=== PATIENT | male | born 1945 | race Two or more races ===

== ENCOUNTER 2019-09-03 14:45 | Inpatient (IN) | payer MEDICAID, MEDICARE ==
[~2019-09-03] VITALS: Ht 157.5 cm; Wt 78.9 kg
[2019-09-03] MEDS ORDERED: SODIUM CHLORIDE 0.9% 1000ML BAG (SEPSIS BOLUS) IV ONE (15:00)
[2019-09-03] MEDS ORDERED: ACETAMINOPHEN 650MG/20.3ML UDC PO ONE (16:15)
[2019-09-03 16:35] LABS: CHLORIDE 103 mEq/L (98-107)
[2019-09-03 16:37] LABS: HEMATOCRIT. 29.7 % (42.0-52.0); MEAN CORPUSCULAR HEMOGLOBIN 27.9 pg (28.0-32.0); MEAN CORPUSCULAR VOLUME 83.1 fL (80.0-94.0); MEAN PLATELET VOLUME 8.1 fl (7.4-10.4); PLATELET 196 x1000/uL (130-400); RED BLOOD CELL COUNT 3.57 mill/uL (4.7-6.1); RED CELL DISTRIBUTION WIDTH 15.9 % (11.6-14.6)
[2019-09-03 16:38] LABS: INR 1.1; PROTHROMBIN TIME 11.6 sec (9.6-11.0)
[2019-09-03] MEDS ORDERED: OSELTAMIVIR 75MG CAPSULE PO ONE (16:45)
[2019-09-03 17:26] LABS: PLATELET ESTIMATE NORMAL
[2019-09-03 17:35] LABS: CLARITY URINE CLEAR (CLEAR); COLOR URINE YELLOW (YELLOW); KETONES URINE 1+ (NEGATIVE); LEUKOCYTE ESTERASE URINE NEGATIVE (NEGATIVE); NITRITE URINE NEGATIVE (NEGATIVE); OCCULT BLOOD URINE 1+ (NEGATIVE); PROTEIN URINE 2+ (NEGATIVE); SPECIFIC GRAVITY URINE 1.023 (1.005-1.030)
[2019-09-03] MEDS ORDERED: ALBUTEROL (0.083%) 2.5MG/3ML NEB HHN STA (17:35)
[2019-09-03] MEDS ORDERED: IPRATROPIUM BROMIDE (0.02%) 0.5MG/2.5ML NEB HHN STA (17:35)
[2019-09-03] MEDS ORDERED: ZOLPIDEM TARTRATE 5MG TABLET PO PRN (18:15)
[2019-09-03] MEDS ORDERED: ONDANSETRON HCL 4MG/2ML INJ IV PRN (18:15)
[2019-09-03] MEDS: SODIUM CHLORIDE 0.9% 1,000 ML IV SCH (18:50)
[2019-09-03 20:10] LABS: HEPATITIS B SURFACE ANTIGEN NEGATIVE
[2019-09-03 20:30] VITALS: BP 134/77
[2019-09-03 20:39] LABS: HEPATITIS A AB IGM NEGATIVE (NEGATIVE)
[2019-09-03] MEDS: BUDESONIDE 0.5MG/2ML NEB HHN SCH (21:17)
[2019-09-03] MEDS: IPRATROPIUM BROMIDE (0.02%) 0.5MG/2.5ML NEB HHN PRN (21:18)
[2019-09-03 23:00] LABS: BG BASE EXCESS -5.1 mmol/L (-2.0-2.0); BG CARBOXYHEMOGLOBIN 0.3 % (0.5-1.5); BG DEOXYHEMOGLOBIN 7.8 % (0.0-5.0); BG FRACTION INSPIRED OXYGEN 28; BG METHEMOGLOBIN 0.1 % (0.0-1.5); BG OXYGEN SATURATION 92.2 % (92.0-98.5); BG OXYHEMOGLOBIN 91.8 % (94.0-97.0); BG PCO2 37.3 mmHg (35.0-45.0); BG PH 7.348 (7.350-7.450); BG PO2 68.8 mmHg (75.0-100.0); BG SAMPLE SITE LEFT RADIAL; BG TOTAL HEMOGLOBIN 10.6 g/dL (12.0-18.0); BG VENT MODE NASAL CANNULA
[2019-09-03] MEDS: ACETAMINOPHEN 325MG TABLET PO PRN (23:46)
[2019-09-04] VITALS (12 sets, daily range): BP systolic 98–139; BP diastolic 48–82
[2019-09-04 06:06] LABS: HEMOGLOBIN. 9.3 g/dL (14.0-18.0); MEAN CORPUSCULAR HEMOGLOBIN 28.5 pg (28.0-32.0); MEAN CORPUSCULAR VOLUME 83.3 fL (80.0-94.0); MEAN PLATELET VOLUME 8.1 fl (7.4-10.4); PLATELET 162 x1000/uL (130-400); RED BLOOD CELL COUNT 3.25 mill/uL (4.7-6.1); RED CELL DISTRIBUTION WIDTH 15.9 % (11.6-14.6)
[2019-09-04 06:13] LABS: CHLORIDE 112 mEq/L (98-107)
[2019-09-04] MEDS ORDERED: PIOG30TA70 PO (07:05)
[2019-09-04] MEDS ORDERED: METF-416 PO (07:05)
[2019-09-04] MEDS ORDERED: CETI-114 PO (07:05)
[2019-09-04] MEDS ORDERED: LEVO25TA7 PO (07:05)
[2019-09-04] MEDS ORDERED: TAMS-11 PO (07:05)
[2019-09-04] MEDS ORDERED: GLIP10TA10 PO (07:05)
[2019-09-04] MEDS ORDERED: LOSA50TA41 PO (07:05)
[2019-09-04] MEDS ORDERED: FINA5TAB11 PO (07:05)
[2019-09-04] MEDS ORDERED: ATOR-2 PO (07:05)
[2019-09-04] MEDS ORDERED: PANT40TA4 PO (07:05)
[2019-09-04] MEDS ORDERED: METF500S7 PO (07:05)
[2019-09-04] MEDS: SODIUM CHLORIDE 0.9% 1,000 ML IV SCH (07:25)
[2019-09-04] MEDS: BLOOD SUGAR DIAGNOSTIC STRIP TEST SCH ×4 (07:30→21:03)
[2019-09-04] MEDS: IPRATROPIUM BROMIDE (0.02%) 0.5MG/2.5ML NEB HHN PRN (07:47)
[2019-09-04] MEDS: BUDESONIDE 0.5MG/2ML NEB HHN SCH (07:47)
[2019-09-04] MEDS: INSULIN LISPRO 100 UNITS/ML SUBCUT SCH ×4 (08:00→21:03)
[2019-09-04 10:06] LABS: PLATELET ESTIMATE NORMAL
[2019-09-04] MEDS ORDERED: BENZONATATE 100MG CAPSULE PO PRN (11:45)
[2019-09-04] MEDS: GUAIFENESIN 600MG ER TABLET PO SCH ×2 (15:30→20:51)
[2019-09-04] MEDS: FLUTICASONE PROPIONATE 50MCG/SPRAY BOTTLE BOTHNSTRLS SCH ×2 (15:30→20:51)
[2019-09-04] MEDS: ACETAMINOPHEN 325MG TABLET PO PRN ×2 (15:31→21:02)
[2019-09-04] MEDS: OSELTAMIVIR 75MG CAPSULE PO SCH ×2 (15:31→20:51)
[2019-09-04] MEDS: PREDNISONE 20MG TABLET PO SCH (15:32)
[2019-09-04] MEDS: AZITHROMYCIN 500 MG TABLET PO SCH (15:32)
[2019-09-04] MEDS: TAMSULOSIN HCL 0.4MG SR CAPSULE PO SCH (15:33)
[2019-09-04] MEDS: FAMOTIDINE 20MG TABLET PO SCH ×2 (15:43→20:51)
[2019-09-04] MEDS: IPRATROPIUM/ALBUTEROL 0.5-3(2.5)MG/3ML NEB HHN SCH ×2 (16:30→20:56)
[2019-09-04 18:08] LABS: T4 FREE 1.15 ng/dL (0.76-1.46)
[2019-09-04] MEDS: MONTELUKAST SODIUM 10MG TABLET PO SCH (20:51)
[2019-09-05] VITALS (11 sets, daily range): BP systolic 124–153; BP diastolic 55–82
[2019-09-05] MEDS: IPRATROPIUM/ALBUTEROL 0.5-3(2.5)MG/3ML NEB HHN SCH ×6 (00:38→21:15)
[2019-09-05] MEDS: ACETAMINOPHEN 325MG TABLET PO PRN (02:05)
[2019-09-05] MEDS: SODIUM CHLORIDE 0.9% 1,000 ML IV SCH ×2 (02:05→21:30)
[2019-09-05 05:41] LABS: *BARBITURATES SCREEN URINE NEGATIVE (NEGATIVE); CANNABINOID URINE SCREEN NEGATIVE (NEGATIVE); PHENCYCLIDINE URINE SCREEN NEGATIVE (NEGATIVE)
[2019-09-05 05:42] LABS: *AMPHETAMINES SCREEN URINE NEGATIVE (NEGATIVE); *BENZODIAZEPINES SCREEN URINE NEGATIVE (NEGATIVE); *COCAINE SCREEN URINE NEGATIVE (NEGATIVE); METHADONE URINE SCREEN NEGATIVE (NEGATIVE); OPIATES URINE SCREEN NEGATIVE (NEGATIVE)
[2019-09-05 06:52] LABS: HEMATOCRIT. 26.2 % (42.0-52.0); HEMOGLOBIN. 8.9 g/dL (14.0-18.0); MEAN CORPUSCULAR VOLUME 82.8 fL (80.0-94.0); MEAN PLATELET VOLUME 8.4 fl (7.4-10.4); PLATELET 163 x1000/uL (130-400); RED BLOOD CELL COUNT 3.16 mill/uL (4.7-6.1); RED CELL DISTRIBUTION WIDTH 16.1 % (11.6-14.6)
[2019-09-05] MEDS: BLOOD SUGAR DIAGNOSTIC STRIP TEST SCH ×4 (07:11→21:01)
[2019-09-05] MEDS: INSULIN LISPRO 100 UNITS/ML SUBCUT SCH ×4 (07:11→21:28)
[2019-09-05 07:16] LABS: CHLORIDE 112 mEq/L (98-107)
[2019-09-05] MEDS: FAMOTIDINE 20MG TABLET PO SCH ×2 (08:59→21:11)
[2019-09-05] MEDS: AZITHROMYCIN 500 MG TABLET PO SCH (08:59)
[2019-09-05] MEDS: OSELTAMIVIR 75MG CAPSULE PO SCH ×2 (08:59→21:02)
[2019-09-05] MEDS: TAMSULOSIN HCL 0.4MG SR CAPSULE PO SCH (09:00)
[2019-09-05] MEDS: FLUTICASONE PROPIONATE 50MCG/SPRAY BOTTLE BOTHNSTRLS SCH ×2 (09:01→21:03)
[2019-09-05] MEDS: GUAIFENESIN 600MG ER TABLET PO SCH ×2 (09:01→21:02)
[2019-09-05] MEDS: PREDNISONE 20MG TABLET PO SCH (09:02)
[2019-09-05] MEDS ORDERED: LORAZEPAM 2MG/ML CPJ IV PRN (10:45)
[2019-09-05] MEDS: PHENOL/SODIUM PHENOLATE 1.4% SRPAY 177ML MM SCH ×2 (17:24→23:32)
[2019-09-05] MEDS: BENZONATATE 100MG CAPSULE PO SCH ×2 (17:24→21:02)
[2019-09-05 17:25] LABS: PLATELET ESTIMATE NORMAL
[2019-09-05] MEDS: MONTELUKAST SODIUM 10MG TABLET PO SCH (21:11)
[2019-09-06] VITALS (15 sets, daily range): BP systolic 93–165; BP diastolic 62–91
[2019-09-06] MEDS: IPRATROPIUM/ALBUTEROL 0.5-3(2.5)MG/3ML NEB HHN SCH ×6 (01:13→20:45)
[2019-09-06] MEDS: BENZONATATE 100MG CAPSULE PO SCH ×3 (04:32→20:56)
[2019-09-06] MEDS: PHENOL/SODIUM PHENOLATE 1.4% SRPAY 177ML MM SCH ×3 (04:33→18:11)
[2019-09-06 06:46] LABS: HEMOGLOBIN. 9.1 g/dL (14.0-18.0); MEAN CORPUSCULAR HEMOGLOBIN 27.8 pg (28.0-32.0); MEAN CORPUSCULAR VOLUME 82.7 fL (80.0-94.0); MEAN PLATELET VOLUME 8.6 fl (7.4-10.4); PLATELET 192 x1000/uL (130-400); RED BLOOD CELL COUNT 3.27 mill/uL (4.7-6.1); RED CELL DISTRIBUTION WIDTH 16.2 % (11.6-14.6)
[2019-09-06 06:47] LABS: CHLORIDE 113 mEq/L (98-107)
[2019-09-06] MEDS: BLOOD SUGAR DIAGNOSTIC STRIP TEST SCH ×4 (07:30→21:14)
[2019-09-06] MEDS: INSULIN LISPRO 100 UNITS/ML SUBCUT SCH ×4 (08:00→21:14)
[2019-09-06] MEDS: FLUTICASONE PROPIONATE 50MCG/SPRAY BOTTLE BOTHNSTRLS SCH ×2 (09:34→20:59)
[2019-09-06] MEDS: TAMSULOSIN HCL 0.4MG SR CAPSULE PO SCH (09:34)
[2019-09-06] MEDS: PREDNISONE 20MG TABLET PO SCH (09:34)
[2019-09-06] MEDS: AZITHROMYCIN 500 MG TABLET PO SCH (09:34)
[2019-09-06] MEDS: OSELTAMIVIR 75MG CAPSULE PO SCH ×2 (09:34→20:56)
[2019-09-06] MEDS: FAMOTIDINE 20MG TABLET PO SCH ×2 (09:34→20:56)
[2019-09-06] MEDS: GUAIFENESIN 600MG ER TABLET PO SCH ×2 (09:34→20:56)
[2019-09-06 11:42] LABS: PLATELET ESTIMATE NORMAL
[2019-09-06] MEDS ORDERED: POTASSIUM CHLORIDE INJ 40 MEQ in DEXT 5% WATER 250 ML IV SCH (15:00)
[2019-09-06] MEDS: MONTELUKAST SODIUM 10MG TABLET PO SCH (20:56)
[2019-09-07] VITALS: BP 150/77
[2019-09-07] MEDS: IPRATROPIUM/ALBUTEROL 0.5-3(2.5)MG/3ML NEB HHN SCH ×6 (00:56→21:19)
[2019-09-07] MEDS: PHENOL/SODIUM PHENOLATE 1.4% SRPAY 177ML MM SCH ×5 (01:06→22:36)
[2019-09-07 02:00] VITALS: BP 147/74
[2019-09-07] MEDS: BENZONATATE 100MG CAPSULE PO SCH ×3 (05:56→21:12)
[2019-09-07] MEDS: BLOOD SUGAR DIAGNOSTIC STRIP TEST SCH ×4 (06:53→20:49)
[2019-09-07] MEDS: INSULIN LISPRO 100 UNITS/ML SUBCUT SCH ×4 (06:53→21:13)
[2019-09-07 07:00] LABS: HEMATOCRIT. 26.7 % (42.0-52.0); MEAN CORPUSCULAR HEMOGLOBIN 27.7 pg (28.0-32.0); MEAN CORPUSCULAR VOLUME 82.1 fL (80.0-94.0); MEAN PLATELET VOLUME 8.4 fl (7.4-10.4); PLATELET 195 x1000/uL (130-400); RED BLOOD CELL COUNT 3.25 mill/uL (4.7-6.1); RED CELL DISTRIBUTION WIDTH 16.6 % (11.6-14.6)
[2019-09-07 07:55] LABS: CHLORIDE 112 mEq/L (98-107)
[2019-09-07] MEDS: FLUTICASONE PROPIONATE 50MCG/SPRAY BOTTLE BOTHNSTRLS SCH ×2 (09:16→20:44)
[2019-09-07] MEDS: OSELTAMIVIR 75MG CAPSULE PO SCH ×2 (09:17→20:45)
[2019-09-07] MEDS: TAMSULOSIN HCL 0.4MG SR CAPSULE PO SCH (09:17)
[2019-09-07] MEDS: FAMOTIDINE 20MG TABLET PO SCH ×2 (09:17→20:44)
[2019-09-07] MEDS: PREDNISONE 20MG TABLET PO SCH (09:17)
[2019-09-07] MEDS: AZITHROMYCIN 500 MG TABLET PO SCH (09:17)
[2019-09-07] MEDS: GUAIFENESIN 600MG ER TABLET PO SCH ×2 (09:17→20:44)
[2019-09-07 10:08] LABS: NUCLEATED RED BLOOD CELLS 1 /100 WBC
[2019-09-07 10:09] LABS: PLATELET ESTIMATE NORMAL
[2019-09-07] MEDS ORDERED: POTASSIUM CHLORIDE INJ 40 MEQ in DEXT 5% WATER 250 ML IV NR (11:00)
[2019-09-07] MEDS: SODIUM CHLORIDE 0.9% 1,000 ML IV SCH (11:30)
[2019-09-07 12:00] VITALS: BP 133/55
[2019-09-07] MEDS ORDERED: METHYLPREDNISOLONE SOD SUCC 40 MG/ML VIAL IV NR (14:00)
[2019-09-07] MEDS ORDERED: BENZONATATE 100MG CAPSULE PO SCH (14:00)
[2019-09-07] MEDS: GUAIFENESIN-DM 200MG-20MG/10ML UDC PO PRN (15:24)
[2019-09-07 16:00] VITALS: BP 128/55
[2019-09-07 20:00] VITALS: BP 120/81
[2019-09-07] MEDS: MONTELUKAST SODIUM 10MG TABLET PO SCH (20:44)
[2019-09-08] VITALS: BP 130/60
[2019-09-08] MEDS: IPRATROPIUM/ALBUTEROL 0.5-3(2.5)MG/3ML NEB HHN SCH ×5 (01:01→20:30)
[2019-09-08 04:00] VITALS: BP 113/71
[2019-09-08] MEDS: BENZONATATE 100MG CAPSULE PO SCH ×3 (05:54→22:24)
[2019-09-08] MEDS: PHENOL/SODIUM PHENOLATE 1.4% SRPAY 177ML MM SCH ×4 (05:54→22:24)
[2019-09-08] MEDS: SODIUM CHLORIDE 0.9% 1,000 ML IV SCH ×3 (06:19→19:54)
[2019-09-08] MEDS: BLOOD SUGAR DIAGNOSTIC STRIP TEST SCH ×4 (06:26→20:25)
[2019-09-08 07:14] LABS: HEMATOCRIT. 27.7 % (42.0-52.0); HEMOGLOBIN. 9.4 g/dL (14.0-18.0); MEAN CORPUSCULAR HEMOGLOBIN 27.8 pg (28.0-32.0); MEAN PLATELET VOLUME 8.2 fl (7.4-10.4); PLATELET 205 x1000/uL (130-400); RED BLOOD CELL COUNT 3.38 mill/uL (4.7-6.1); RED CELL DISTRIBUTION WIDTH 16.8 % (11.6-14.6)
[2019-09-08 07:38] LABS: CHLORIDE 109 mEq/L (98-107)
[2019-09-08] MEDS: INSULIN LISPRO 100 UNITS/ML SUBCUT SCH ×4 (07:50→20:24)
[2019-09-08 08:00] VITALS: BP 131/70
[2019-09-08] MEDS: AZITHROMYCIN 500 MG TABLET PO SCH (11:58)
[2019-09-08] MEDS: OSELTAMIVIR 75MG CAPSULE PO SCH ×2 (11:58→20:25)
[2019-09-08] MEDS: FAMOTIDINE 20MG TABLET PO SCH ×2 (11:58→20:25)
[2019-09-08] MEDS: TAMSULOSIN HCL 0.4MG SR CAPSULE PO SCH (11:58)
[2019-09-08] MEDS: GUAIFENESIN 600MG ER TABLET PO SCH ×2 (11:58→20:25)
[2019-09-08] MEDS: PREDNISONE 20MG TABLET PO SCH (11:58)
[2019-09-08] MEDS: FLUTICASONE PROPIONATE 50MCG/SPRAY BOTTLE BOTHNSTRLS SCH ×2 (11:59→20:25)
[2019-09-08 12:00] VITALS: BP 115/61
[2019-09-08] MEDS ORDERED: TERBUTALINE SULFATE 1MG/ML VIAL SUBCUT NR (12:00)
[2019-09-08 13:51] LABS: PLATELET ESTIMATE NORMAL
[2019-09-08 16:00] VITALS: BP 146/72
[2019-09-08] MEDS: GUAIFENESIN-DM 200MG-20MG/10ML UDC PO PRN (19:46)
[2019-09-08 20:00] VITALS: BP 154/66
[2019-09-08] MEDS: MONTELUKAST SODIUM 10MG TABLET PO SCH (20:25)
[2019-09-09] VITALS: BP 150/77
[2019-09-09] MEDS: IPRATROPIUM/ALBUTEROL 0.5-3(2.5)MG/3ML NEB HHN SCH ×6 (00:23→20:24)
[2019-09-09 04:00] VITALS: BP 159/88
[2019-09-09] MEDS: PHENOL/SODIUM PHENOLATE 1.4% SRPAY 177ML MM SCH ×4 (05:11→23:07)
[2019-09-09] MEDS: BENZONATATE 100MG CAPSULE PO SCH ×3 (05:11→21:00)
[2019-09-09] MEDS ORDERED: CLONIDINE 0.1MG TABLET PO PRN (06:15)
[2019-09-09 07:11] LABS: HEMOGLOBIN. 9.4 g/dL (14.0-18.0); MEAN CORPUSCULAR HEMOGLOBIN 27.6 pg (28.0-32.0); MEAN CORPUSCULAR VOLUME 82.6 fL (80.0-94.0); MEAN PLATELET VOLUME 8.2 fl (7.4-10.4); PLATELET 217 x1000/uL (130-400); RED BLOOD CELL COUNT 3.39 mill/uL (4.7-6.1)
[2019-09-09] MEDS: BLOOD SUGAR DIAGNOSTIC STRIP TEST SCH ×4 (07:20→20:28)
[2019-09-09] MEDS: INSULIN LISPRO 100 UNITS/ML SUBCUT SCH ×4 (07:50→20:59)
[2019-09-09 08:00] VITALS: BP 157/75
[2019-09-09] MEDS: AZITHROMYCIN 500 MG TABLET PO SCH (08:08)
[2019-09-09] MEDS: OSELTAMIVIR 75MG CAPSULE PO SCH ×2 (08:08→20:58)
[2019-09-09] MEDS: PREDNISONE 20MG TABLET PO SCH (08:08)
[2019-09-09] MEDS: SODIUM CHLORIDE 0.9% 1,000 ML IV SCH (08:08)
[2019-09-09] MEDS: TAMSULOSIN HCL 0.4MG SR CAPSULE PO SCH (08:08)
[2019-09-09] MEDS: FAMOTIDINE 20MG TABLET PO SCH ×2 (08:08→20:58)
[2019-09-09] MEDS: GUAIFENESIN 600MG ER TABLET PO SCH ×2 (08:08→20:58)
[2019-09-09] MEDS: GUAIFENESIN-DM 200MG-20MG/10ML UDC PO PRN ×2 (08:08→16:59)
[2019-09-09] MEDS: FLUTICASONE PROPIONATE 50MCG/SPRAY BOTTLE BOTHNSTRLS SCH ×2 (08:08→20:58)
[2019-09-09 08:15] LABS: CHLORIDE 110 mEq/L (98-107)
[2019-09-09] MEDS ORDERED: POTASSIUM CHLORIDE INJ 40 MEQ in DEXT 5% WATER 250 ML IV NR ×2 (14:30→16:00)
[2019-09-09] MEDS: ACETAMINOPHEN 325MG TABLET PO PRN (16:59)
[2019-09-09 19:59] LABS: PLATELET ESTIMATE NORMAL
[2019-09-09 20:00] VITALS: BP 145/70
[2019-09-09] MEDS: MONTELUKAST SODIUM 10MG TABLET PO SCH (20:58)
[2019-09-10] VITALS: BP 147/67
[2019-09-10] MEDS: IPRATROPIUM/ALBUTEROL 0.5-3(2.5)MG/3ML NEB HHN SCH ×5 (00:28→15:45)
[2019-09-10 04:00] VITALS: BP 159/70
[2019-09-10] MEDS: PHENOL/SODIUM PHENOLATE 1.4% SRPAY 177ML MM SCH ×2 (05:35→11:59)
[2019-09-10] MEDS: BENZONATATE 100MG CAPSULE PO SCH ×2 (05:36→13:30)
[2019-09-10] MEDS: SODIUM CHLORIDE 0.9% 1,000 ML IV SCH ×2 (05:57→10:15)
[2019-09-10] MEDS: BLOOD SUGAR DIAGNOSTIC STRIP TEST SCH ×2 (06:25→12:03)
[2019-09-10 07:03] LABS: HEMATOCRIT. 26.8 % (42.0-52.0); HEMOGLOBIN. 9.1 g/dL (14.0-18.0); MEAN CORPUSCULAR HEMOGLOBIN 27.8 pg (28.0-32.0); MEAN CORPUSCULAR VOLUME 81.8 fL (80.0-94.0); MEAN PLATELET VOLUME 8.1 fl (7.4-10.4); PLATELET 215 x1000/uL (130-400); RED BLOOD CELL COUNT 3.28 mill/uL (4.7-6.1); RED CELL DISTRIBUTION WIDTH 16.9 % (11.6-14.6)
[2019-09-10] MEDS: INSULIN LISPRO 100 UNITS/ML SUBCUT SCH ×2 (07:17→13:33)
[2019-09-10 07:53] LABS: CHLORIDE 109 mEq/L (98-107)
[2019-09-10 08:00] VITALS: BP 158/73
[2019-09-10] MEDS: FAMOTIDINE 20MG TABLET PO SCH (09:10)
[2019-09-10] MEDS: GUAIFENESIN 600MG ER TABLET PO SCH (09:10)
[2019-09-10] MEDS: OSELTAMIVIR 75MG CAPSULE PO SCH (09:10)
[2019-09-10] MEDS: PREDNISONE 20MG TABLET PO SCH (09:10)
[2019-09-10] MEDS: TAMSULOSIN HCL 0.4MG SR CAPSULE PO SCH (09:10)
[2019-09-10] MEDS: GUAIFENESIN-DM 200MG-20MG/10ML UDC PO PRN (09:10)
[2019-09-10] MEDS: AZITHROMYCIN 500 MG TABLET PO SCH (09:10)
[2019-09-10] MEDS: FLUTICASONE PROPIONATE 50MCG/SPRAY BOTTLE BOTHNSTRLS SCH (09:13)
[2019-09-10 12:00] VITALS: BP 156/68
[2019-09-10] MEDS ORDERED: BENZ100C86 PO (14:24)
[2019-09-10] MEDS ORDERED: IPRA3AMP9 HHN (14:24)
[2019-09-10] MEDS ORDERED: MONT10TA21 PO (14:24)
[2019-09-10] MEDS ORDERED: ALBU18HF2 IH (14:24)
[2019-09-10] MEDS ORDERED: GUAI600T44 PO (14:24)
[2019-09-10] MEDS ORDERED: MOME13HF2 INH (14:25)
[2019-09-10 15:28] VITALS: BP 156/68
[2019-09-10 16:00] VITALS: BP 145/58
[2019-09-10 19:52] LABS: PLATELET ESTIMATE NORMAL
== END 2019-09-10 16:15 | disposition home or self-care (01) | DRG 720 ==
LOC: ER 14:49 → 7WST 17:39 → EDBEDREQ 17:45 → EDBEDREQSVC 17:45 → ENRESERV 19:20 → 5EST 09-04 00:24 → 6WST 09-07 05:38
PROVIDERS: ADMIT Internal Medicine; ATTEND Internal Medicine
DX: A41.9 Sepsis, unspecified organism (principal); J96.01 Acute respiratory failure with hypoxia; J45.901 Unspecified asthma with (acute) exacerbation; J44.9 Chronic obstructive pulmonary disease, unspecified; I11.0 Hypertensive heart disease with heart failure; I50.40 Unspecified combined systolic (congestive) and diastolic (congestive) heart failure; I36.1 Nonrheumatic tricuspid (valve) insufficiency; K21.9 Gastro-esophageal reflux disease without esophagitis; D64.9 Anemia, unspecified; E03.9 Hypothyroidism, unspecified; E11.9 Type 2 diabetes mellitus without complications; E78.5 Hyperlipidemia, unspecified; J10.1 Influenza due to other identified influenza virus with other respiratory manifestations; N40.0 Benign prostatic hyperplasia without lower urinary tract symptoms; Z82.49 Family history of ischemic heart disease and other diseases of the circulatory system; Z85.46 Personal history of malignant neoplasm of prostate; Z79.899 Other long term (current) drug therapy; Z79.84 Long term (current) use of oral hypoglycemic drugs; Z87.891 Personal history of nicotine dependence
CPT/HCPCS: 36415; 36600; 71045; 80048; 80053; 80305; 81003; 82375; 82805; 82962; 83036; 83605; 83880; 84145; 84439; 84443; 84481; 84484; 85025; 85379; 86705; 86709; 86803; 87340; 87804; 93005; 93306; 93970; 94640; 96360; 96361; 99291; J1815; J2920; J3105; J3480; J7030; J7060; J7512; J7611; J7620; J7626

== ENCOUNTER 2020-06-08 00:15 | Emergency (ER) | payer MEDICAID ==
[~2020-06-08] VITALS: Ht 165.1 cm; Wt 81.2 kg
[~2020-06-08 00:15] MED LIST: ALBU18HF2 IH; ATOR-2 PO; BENZ100C86 PO; CETI-114 PO; FINA5TAB11 PO; GLIP10TA10 PO; GUAI600T44 PO; IPRA3AMP9 HHN; LEVO25TA7 PO; LOSA50TA41 PO; METF-416 PO; MOME13HF2 INH; MONT10TA21 PO; PANT40TA4 PO; PIOG30TA70 PO; TAMS-11 PO
[2020-06-08] MEDS ORDERED: TRAMADOL 50MG TABLET PO SCH (00:30)
[2020-06-08 02:49] VITALS: BP 147/81
== END 2020-06-08 02:50 | disposition home or self-care (01) ==
LOC: ER 00:30
DX: S52.591A Other fractures of lower end of right radius, initial encounter for closed fracture (principal); S09.8XXA Other specified injuries of head, initial encounter; S80.01XA Contusion of right knee, initial encounter; J44.9 Chronic obstructive pulmonary disease, unspecified; E11.9 Type 2 diabetes mellitus without complications; E78.00 Pure hypercholesterolemia, unspecified; I10 Essential (primary) hypertension; W01.0XXA Fall on same level from slipping, tripping and stumbling without subsequent striking against object, initial encounter; Y93.01 Activity, walking, marching and hiking; Y92.89 Other specified places as the place of occurrence of the external cause; Z85.46 Personal history of malignant neoplasm of prostate
CPT/HCPCS: 73110; 73130; 73562; 99284

== ENCOUNTER 2020-07-26 18:44 | Emergency (ER) | payer MEDICAID ==
[~2020-07-26] VITALS: Ht 160 cm; Wt 80.0 kg
[2020-07-26] MEDS ORDERED: KETOROLAC 30MG/ML VIAL IV STA (19:36)
[2020-07-26] MEDS ORDERED: PREDNISONE 20MG TABLET PO STA (19:36)
[2020-07-26] MEDS ORDERED: ONDANSETRON 4MG ODT PO STA (19:36)
[2020-07-26] MEDS: ALBUTEROL 6.7GM HFA INHALER ORI PRN (20:38)
[2020-07-26 21:42] LABS: HEMATOCRIT. 36.2 % (42.0-52.0); HEMOGLOBIN. 12.6 g/dL (14.0-18.0); MEAN CORPUSCULAR HEMOGLOBIN 28.5 pg (28.0-32.0); MEAN PLATELET VOLUME 8.4 fl (7.4-10.4); PLATELET 152 x1000/uL (130-400); RED BLOOD CELL COUNT 4.41 mill/uL (4.7-6.1); RED CELL DISTRIBUTION WIDTH 14.8 % (11.6-14.6)
[2020-07-26 22:01] LABS: CHLORIDE 104 mEq/L (98-107)
[2020-07-26 22:20] LABS: PLATELET ESTIMATE NORMAL
[2020-07-27] MEDS: ALBUTEROL 6.7GM HFA INHALER ORI PRN ×2 (01:00→01:39)
[2020-07-27 01:51] VITALS: BP 126/76
== END 2020-07-27 01:55 | disposition home or self-care (01) ==
LOC: ER 18:44
DX: J18.9 Pneumonia, unspecified organism (principal); J44.1 Chronic obstructive pulmonary disease with (acute) exacerbation; I10 Essential (primary) hypertension; E11.9 Type 2 diabetes mellitus without complications; E78.00 Pure hypercholesterolemia, unspecified; Z20.828 Contact with and (suspected) exposure to other viral communicable diseases; Z85.46 Personal history of malignant neoplasm of prostate; Z79.84 Long term (current) use of oral hypoglycemic drugs
CPT/HCPCS: 36415; 71045; 73110; 80053; 83880; 84484; 85025; 93005; 94640; 96374; 99285; J1885; J7512; Q0162

== ENCOUNTER 2021-04-23 23:04 | Inpatient (IN) | payer MEDICAID ==
[~2021-04-23] VITALS: Ht 160 cm; Wt 79.8 kg
[~2021-04-23 23:04] MED LIST changes: -CETI-114 PO; +CETI-89 PO; -PANT40TA4 PO; +PANT40TA51 PO
[2021-04-23] MEDS ORDERED: IPRATROPIUM BROMIDE (0.02%) 0.5MG/2.5ML NEB HHN STA (23:08)
[2021-04-23] MEDS ORDERED: METHYLPREDNISOLONE SOD SUCC 125 MG/2 ML VIAL IV STA (23:08)
[2021-04-23] MEDS ORDERED: ALBUTEROL (0.083%) 2.5MG/3ML NEB HHN STA (23:08)
[2021-04-23] MEDS ORDERED: AZITHROMYCIN 500 MG in DEXT 5% WATER 250 ML IV ONE (23:15)
[2021-04-23] MEDS ORDERED: CEFTRIAXONE 1 G PREMIX 50 ML IV ONE (23:15)
[2021-04-23 23:36] LABS: EOSINOPHILS % 11.9 % (0.0-5.0); HEMATOCRIT. 37.2 % (42.0-52.0); HEMOGLOBIN. 12.7 g/dL (14.0-18.0); LYMPHOCYTES % 24.8 % (20.0-50.0); MEAN CORPUSCULAR HEMOGLOBIN 28.2 pg (28.0-32.0); MEAN CORPUSCULAR VOLUME 82.4 fL (80.0-94.0); MEAN PLATELET VOLUME 8.2 fl (7.4-10.4); MONOCYTES % 8.8 % (2.0-8.0); NEUTROPHILS % 53.5 % (40.0-76.0); PLATELET 165 x1000/uL (130-400); RED BLOOD CELL COUNT 4.51 mill/uL (4.7-6.1); RED CELL DISTRIBUTION WIDTH 14.5 % (11.6-14.6)
[2021-04-23 23:46] LABS: CHLORIDE 105 mEq/L (98-107)
[2021-04-23 23:47] LABS: D-DIMER < 0.19 mg/L FEU (<0.50); PROTHROMBIN TIME 10.3 sec (9.6-11.0)
[2021-04-24 01:03] LABS: CLARITY URINE CLEAR (CLEAR); COLOR URINE YELLOW (YELLOW); KETONES URINE NEGATIVE (NEGATIVE); LEUKOCYTE ESTERASE URINE NEGATIVE (NEGATIVE); NITRITE URINE NEGATIVE (NEGATIVE); OCCULT BLOOD URINE NEGATIVE (NEGATIVE); PROTEIN URINE NEGATIVE (NEGATIVE); SPECIFIC GRAVITY URINE 1.015 (1.005-1.030); UROBILINOGEN URINE 0.2 E.U./dL (0.2-1.0)
[2021-04-24] MEDS ORDERED: ONDANSETRON HCL 4MG/2ML INJ IV PRN (02:00)
[2021-04-24] MEDS ORDERED: ACETAMINOPHEN 325MG TABLET PO PRN (02:00)
[2021-04-24] MEDS ORDERED: DEXTROSE 50% WATER 50ML SYRINGE IV PRN (02:15)
[2021-04-24] MEDS ORDERED: IPRATROPIUM/ALBUTEROL 0.5-3(2.5)MG/3ML NEB HHN SCH ×2 (04:19)
[2021-04-24] MEDS: BLOOD SUGAR DIAGNOSTIC STRIP TEST SCH ×5 (04:33→21:23)
[2021-04-24] MEDS: INSULIN LISPRO 100 UNITS/ML SUBCUT SCH ×5 (04:39→21:23)
[2021-04-24] MEDS: PREDNISONE 20MG TABLET PO SCH ×2 (04:39→09:25)
[2021-04-24 17:20] VITALS: BP 157/78
[2021-04-24] MEDS: ACETAMINOPHEN 325MG TABLET PO PRN (19:23)
[2021-04-24] MEDS: IPRATROPIUM/ALBUTEROL 0.5-3(2.5)MG/3ML NEB HHN SCH (20:01)
[2021-04-24 20:30] VITALS: BP 143/74
[2021-04-24] MEDS ORDERED: PRED5TAB MT (20:57)
[2021-04-24] MEDS ORDERED: ACET-2708 MT (20:57)
[2021-04-24] MEDS ORDERED: BENZ100C86 MT (20:57)
[2021-04-24] MEDS ORDERED: AZIT500T3 MT (20:57)
[2021-04-24] MEDS ORDERED: ROFL500T PO (20:57)
[2021-04-24] MEDS ORDERED: [UNRECOGNIZED DRUG - CODE] MT (20:57)
[2021-04-24] MEDS ORDERED: FURO40TA5 MT (20:57)
[2021-04-24] MEDS ORDERED: AZITHROMYCIN 500 MG in DEXT 5% WATER 250 ML IV SCH (21:00)
[2021-04-24] MEDS ORDERED: FINASTERIDE 5MG TABLET PO SCH (21:00)
[2021-04-24] MEDS ORDERED: MONTELUKAST SODIUM 10MG TABLET PO SCH (21:00)
[2021-04-24] MEDS: LOSARTAN POTASSIUM 50 MG TABLET PO SCH (21:22)
[2021-04-25] VITALS: BP 116/47
[2021-04-25] MEDS: IPRATROPIUM/ALBUTEROL 0.5-3(2.5)MG/3ML NEB HHN SCH ×4 (00:34→15:46)
[2021-04-25 04:30] VITALS: BP 125/48
[2021-04-25] MEDS: BLOOD SUGAR DIAGNOSTIC STRIP TEST SCH ×2 (06:24→12:20)
[2021-04-25] MEDS ORDERED: PANTOPRAZOLE 40MG DR TABLET PO SCH (07:20)
[2021-04-25] MEDS ORDERED: LEVOTHYROXINE SODIUM 25MCG TABLET PO SCH (07:20)
[2021-04-25 08:00] VITALS: BP 131/56
[2021-04-25] MEDS ORDERED: CETIRIZINE 10MG TABLET PO SCH (09:00)
[2021-04-25] MEDS ORDERED: TAMSULOSIN HCL 0.4MG SR CAPSULE PO SCH (09:00)
[2021-04-25] MEDS: INSULIN LISPRO 100 UNITS/ML SUBCUT SCH ×2 (10:09→13:39)
[2021-04-25] MEDS: PREDNISONE 20MG TABLET PO SCH (10:11)
[2021-04-25] MEDS: LOSARTAN POTASSIUM 50 MG TABLET PO SCH (10:11)
[2021-04-25] MEDS: ACETAMINOPHEN 325MG TABLET PO PRN (10:12)
[2021-04-25] MEDS ORDERED: BENZONATATE 100MG CAPSULE PO PRN (11:45)
[2021-04-25 12:00] VITALS: BP 119/57
[2021-04-25] MEDS ORDERED: INSULIN LISPRO 100 UNITS/ML SUBCUT SCH (12:20)
[2021-04-25] MEDS ORDERED: ENOXAPARIN 40MG/0.4ML SYR SUBCUT SCH (12:30)
[2021-04-25] MEDS ORDERED: AZIT500T8 MT (15:41)
[2021-04-25] MEDS ORDERED: P20 PO (15:41)
[2021-04-25 16:00] VITALS: BP 109/53
[2021-04-25 16:43] LABS: BASOPHILS % 0.4 % (0.0-2.0); CHLORIDE 103 mEq/L (98-107); EOSINOPHILS % 0.6 % (0.0-5.0); HEMATOCRIT. 36.4 % (42.0-52.0); HEMOGLOBIN. 12.4 g/dL (14.0-18.0); LYMPHOCYTES % 9.7 % (20.0-50.0); MEAN CORPUSCULAR HEMOGLOBIN 28.5 pg (28.0-32.0); MEAN CORPUSCULAR VOLUME 83.5 fL (80.0-94.0); MEAN PLATELET VOLUME 8.8 fl (7.4-10.4); MONOCYTES % 2.5 % (2.0-8.0); NEUTROPHILS % 86.8 % (40.0-76.0); PLATELET 183 x1000/uL (130-400); RED BLOOD CELL COUNT 4.36 mill/uL (4.7-6.1); RED CELL DISTRIBUTION WIDTH 14.5 % (11.6-14.6)
[2021-04-25 16:49] LABS: PHOSPHORUS 3.2 mg/dL (2.5-4.9)
[2021-04-25 17:12] VITALS: BP 119/57
[2021-04-25] MEDS ORDERED: INSULIN GLARGINE UD 100 UNITS/ML SYR SUBCUT SCH (22:00)
== END 2021-04-25 18:02 | disposition home or self-care (01) | DRG 140 ==
LOC: ER 23:04 → MICUSO 04-24 01:07 → EDBEDREQ 04-24 01:11 → EDBEDREQTM 04-24 01:11 → EDBEDREQSVC 04-24 01:11 → EDBEDREQDT 04-24 01:11 → SUPCPDRO 04-24 01:58 → 6WST 04-24 15:22
PROVIDERS: ADMIT Internal Medicine; ATTEND Internal Medicine
DX: J44.1 Chronic obstructive pulmonary disease with (acute) exacerbation (principal); J96.01 Acute respiratory failure with hypoxia; E11.65 Type 2 diabetes mellitus with hyperglycemia; D64.9 Anemia, unspecified; R81 Glycosuria; Z20.822 Contact with and (suspected) exposure to COVID-19; Z79.51 Long term (current) use of inhaled steroids; Z79.84 Long term (current) use of oral hypoglycemic drugs; Z79.899 Other long term (current) drug therapy; Z85.46 Personal history of malignant neoplasm of prostate; Z85.9 Personal history of malignant neoplasm, unspecified
CPT/HCPCS: 36415; 71045; 80053; 81003; 82962; 83036; 83605; 83735; 83880; 84100; 84145; 84484; 85025; 85379; 87426; 93005; 94640; 94644; 99291; J0456; J0696; J1650; J1815; J2930; J7040; J7060; J7512

== ENCOUNTER 2021-07-22 00:29 | Inpatient (IN) | payer MEDICAID ==
[~2021-07-22] VITALS: Ht 162.6 cm; Wt 77.1 kg
[~2021-07-22 00:29] MED LIST changes: +ACET-2708 MT; +AZIT500T8 MT; +BENZ100C86 MT; -BENZ100C86 PO; +FURO40TA5 MT; -GUAI600T44 PO; +P20 PO; -PIOG30TA70 PO; +ROFL500T PO; +[UNRECOGNIZED DRUG - CODE] MT
[2021-07-22] MEDS ORDERED: IPRATROPIUM BROMIDE (0.02%) 0.5MG/2.5ML NEB HHN STA (00:36)
[2021-07-22] MEDS ORDERED: METHYLPREDNISOLONE SOD SUCC 125 MG/2 ML VIAL IV STA (00:36)
[2021-07-22] MEDS ORDERED: ONDANSETRON HCL 4MG/2ML INJ IV STA (00:36)
[2021-07-22] MEDS ORDERED: ALBUTEROL (0.083%) 2.5MG/3ML NEB HHN STA (00:36)
[2021-07-22] MEDS ORDERED: MAGNESIUM 2 G PREMIX 50 ML IV ONE (00:45)
[2021-07-22] MEDS ORDERED: FUROSEMIDE 40MG/4ML VIAL IV ONE (00:45)
[2021-07-22] MEDS ORDERED: ASPIRIN 81MG TABLET PO ONE (00:45)
[2021-07-22] MEDS ORDERED: NITROGLYCERIN OINT 1GM/INCH UDPKT TD ONE (00:45)
[2021-07-22 01:06] LABS: BASOPHILS % 1.2 % (0.0-2.0); EOSINOPHILS % 14.3 % (0.0-5.0); HEMATOCRIT. 34.4 % (42.0-52.0); HEMOGLOBIN. 11.6 g/dL (14.0-18.0); LYMPHOCYTES % 30.1 % (20.0-50.0); MEAN CORPUSCULAR HEMOGLOBIN 27.5 pg (28.0-32.0); MEAN CORPUSCULAR VOLUME 81.3 fL (80.0-94.0); MEAN PLATELET VOLUME 7.5 fl (7.4-10.4); MONOCYTES % 7.6 % (2.0-8.0); NEUTROPHILS % 46.8 % (40.0-76.0); PLATELET 181 x1000/uL (130-400); RED BLOOD CELL COUNT 4.23 mill/uL (4.7-6.1); RED CELL DISTRIBUTION WIDTH 13.8 % (11.6-14.6)
[2021-07-22 01:12] LABS: CHLORIDE 110 mEq/L (98-107)
[2021-07-22] MEDS ORDERED: GUAIFENESIN 200MG/10ML SUGAR FREE UDC PO PRN (02:45)
[2021-07-22] MEDS ORDERED: CLONIDINE 0.1MG TABLET PO PRN (02:45)
[2021-07-22] MEDS: METHYLPREDNISOLONE SOD SUCC 125 MG/2 ML VIAL IV SCH ×4 (02:45→17:57)
[2021-07-22] MEDS ORDERED: MAGNESIUM/ALUMINUM HYDROXIDE/SIMETHICONE 30ML UDC PO PRN (02:45)
[2021-07-22] MEDS ORDERED: DOCUSATE SODIUM 100MG CAPSULE PO PRN (02:45)
[2021-07-22] MEDS ORDERED: HYDROCODONE/ACETAMINOPHEN 5/325MG TABLET PO PRN (02:45)
[2021-07-22] MEDS ORDERED: ONDANSETRON HCL 4MG/2ML INJ IV PRN (02:45)
[2021-07-22] MEDS ORDERED: IPRATROPIUM/ALBUTEROL 0.5-3(2.5)MG/3ML NEB HHN PRN (02:45)
[2021-07-22] MEDS: AMLODIPINE 10MG TABLET PO SCH ×2 (02:45→09:02)
[2021-07-22] MEDS ORDERED: ACETAMINOPHEN 325MG TABLET PO PRN (02:45)
[2021-07-22] MEDS ORDERED: NALOXONE HCL 0.4 MG/ML 1ML VIAL IV PRN (03:30)
[2021-07-22] MEDS: LEVOFLOXACIN 500MG PREMIX 100 ML IV SCH (04:04)
[2021-07-22] MEDS: TAMSULOSIN HCL 0.4MG SR CAPSULE PO SCH ×2 (04:08→09:01)
[2021-07-22] MEDS: ENOXAPARIN 40MG/0.4ML SYR SUBCUT SCH (08:13)
[2021-07-22] MEDS: FUROSEMIDE 40MG TABLET PO SCH (08:13)
[2021-07-22] MEDS: PANTOPRAZOLE 40MG DR TABLET PO SCH (09:01)
[2021-07-22] MEDS: LOSARTAN POTASSIUM 50 MG TABLET PO SCH (09:01)
[2021-07-22] MEDS: CETIRIZINE 10MG TABLET PO SCH (09:02)
[2021-07-22] MEDS: LEVOTHYROXINE SODIUM 25MCG TABLET PO SCH (09:02)
[2021-07-22] MEDS: GLIPIZIDE 10MG TABLET PO SCH (09:02)
[2021-07-22 10:30] VITALS: BP 132/66
[2021-07-22] MEDS ORDERED: DEXTROSE 50% WATER 50ML SYRINGE IV PRN (10:30)
[2021-07-22] MEDS: INSULIN LISPRO 100 UNITS/ML SUBCUT SCH ×3 (11:47→21:57)
[2021-07-22 12:00] VITALS: BP 110/50
[2021-07-22] MEDS: BLOOD SUGAR DIAGNOSTIC STRIP TEST SCH ×3 (12:00→21:00)
[2021-07-22 12:30] VITALS: BP 132/66
[2021-07-22] MEDS: IPRATROPIUM/ALBUTEROL 0.5-3(2.5)MG/3ML NEB HHN SCH ×2 (14:36→21:36)
[2021-07-22 16:00] VITALS: BP 111/54
[2021-07-22] MEDS ORDERED: INFLUENZA VACCINE 05/PF 0.5 ML SYRINGE IM ONE (17:00)
[2021-07-22 20:00] VITALS: BP 112/50
[2021-07-22] MEDS ORDERED: FINASTERIDE 5MG TABLET PO SCH (21:00)
[2021-07-22] MEDS ORDERED: MONTELUKAST SODIUM 10MG TABLET PO SCH (21:00)
[2021-07-23] VITALS: BP 95/49
[2021-07-23] MEDS: METHYLPREDNISOLONE SOD SUCC 125 MG/2 ML VIAL IV SCH ×3 (00:35→12:00)
[2021-07-23] MEDS: IPRATROPIUM/ALBUTEROL 0.5-3(2.5)MG/3ML NEB HHN SCH ×2 (01:11→09:12)
[2021-07-23 04:00] VITALS: BP 122/58
[2021-07-23] MEDS: LEVOFLOXACIN 500MG PREMIX 100 ML IV SCH (05:54)
[2021-07-23] MEDS: BLOOD SUGAR DIAGNOSTIC STRIP TEST SCH ×2 (06:38→12:16)
[2021-07-23] MEDS: PANTOPRAZOLE 40MG DR TABLET PO SCH (06:40)
[2021-07-23] MEDS: LEVOTHYROXINE SODIUM 25MCG TABLET PO SCH (06:41)
[2021-07-23] MEDS: INSULIN LISPRO 100 UNITS/ML SUBCUT SCH ×2 (06:42→13:12)
[2021-07-23 07:09] LABS: BASOPHILS % 0.1 % (0.0-2.0); HEMOGLOBIN. 11.6 g/dL (14.0-18.0); LYMPHOCYTES % 8.1 % (20.0-50.0); MEAN CORPUSCULAR HEMOGLOBIN 27.7 pg (28.0-32.0); MEAN CORPUSCULAR VOLUME 81.5 fL (80.0-94.0); MEAN PLATELET VOLUME 8.4 fl (7.4-10.4); MONOCYTES % 2.1 % (2.0-8.0); NEUTROPHILS % 89.7 % (40.0-76.0); PLATELET 185 x1000/uL (130-400); RED BLOOD CELL COUNT 4.17 mill/uL (4.7-6.1); RED CELL DISTRIBUTION WIDTH 13.5 % (11.6-14.6)
[2021-07-23 07:13] LABS: CHLORIDE 105 mEq/L (98-107)
[2021-07-23 07:25] LABS: LDL CHOLESTEROL 138 mg/dL (5-100)
[2021-07-23 07:27] LABS: HDL CHOLESTEROL 43 mg/dL (40-59)
[2021-07-23 08:00] VITALS: BP 114/51
[2021-07-23 08:42] LABS: BG BASE EXCESS -0.3 mmol/L (-2.0-2.0); BG CARBOXYHEMOGLOBIN 0.3 % (0.5-1.5); BG DEOXYHEMOGLOBIN 1.9 % (0.0-5.0); BG FRACTION INSPIRED OXYGEN 28; BG HCO3 ACT 24.2 mmol/L (22.0-26.0); BG METHEMOGLOBIN 0.3 % (0.0-1.5); BG OXYGEN SATURATION 98.1 % (92.0-98.5); BG OXYHEMOGLOBIN 97.5 % (94.0-97.0); BG PH 7.411 (7.350-7.450); BG PO2 115.3 mmHg (75.0-100.0); BG SAMPLE SITE RIGHT RADIAL; BG TOTAL HEMOGLOBIN 12.1 g/dL (12.0-18.0); BG VENT MODE NASAL CANNULA
[2021-07-23] MEDS ORDERED: INFLUENZA VACCINE 05/PF 0.5 ML SYRINGE IM ONE (09:00)
[2021-07-23] MEDS: AMLODIPINE 10MG TABLET PO SCH (09:35)
[2021-07-23] MEDS: TAMSULOSIN HCL 0.4MG SR CAPSULE PO SCH (09:35)
[2021-07-23] MEDS: GLIPIZIDE 10MG TABLET PO SCH (09:35)
[2021-07-23] MEDS: LOSARTAN POTASSIUM 50 MG TABLET PO SCH (09:36)
[2021-07-23] MEDS: FUROSEMIDE 40MG TABLET PO SCH (09:39)
[2021-07-23] MEDS: CETIRIZINE 10MG TABLET PO SCH (09:40)
[2021-07-23] MEDS: ENOXAPARIN 40MG/0.4ML SYR SUBCUT SCH (09:40)
[2021-07-23 12:00] VITALS: BP 104/53
[2021-07-23 12:17] VITALS: BP 115/66
== END 2021-07-23 14:15 | disposition home or self-care (01) | DRG 140 ==
LOC: ER 00:29 → 7EST 02:18 → EDBEDREQTM 02:33 → EDBEDREQ 02:33 → ENRESERV 09:01
PROVIDERS: ADMIT Hospitalist; ATTEND Hospitalist
DX: J44.1 Chronic obstructive pulmonary disease with (acute) exacerbation (principal); I11.0 Hypertensive heart disease with heart failure; I50.32 Chronic diastolic (congestive) heart failure; E03.9 Hypothyroidism, unspecified; Z20.822 Contact with and (suspected) exposure to COVID-19; N40.0 Benign prostatic hyperplasia without lower urinary tract symptoms; E11.9 Type 2 diabetes mellitus without complications; Z82.49 Family history of ischemic heart disease and other diseases of the circulatory system; Z79.899 Other long term (current) drug therapy; Z79.84 Long term (current) use of oral hypoglycemic drugs; Z85.9 Personal history of malignant neoplasm, unspecified
CPT/HCPCS: 36415; 36600; 71045; 80053; 80061; 82375; 82805; 82962; 83036; 83880; 84484; 85025; 87426; 90686; 93005; 93970; 99291; J1650; J1815; J1940; J1956; J2310; J2405; J2930; J3475

== ENCOUNTER 2021-08-09 15:34 | Inpatient (IN) | payer MEDICAID ==
[~2021-08-09] VITALS: Ht 172.7 cm; Wt 72.6 kg
[2021-08-09] MEDS ORDERED: ASPIRIN 81MG TABLET PO ONE (15:45)
[2021-08-09] MEDS ORDERED: FUROSEMIDE 40MG/4ML VIAL IV ONE (15:45)
[2021-08-09] MEDS ORDERED: NITROGLYCERIN OINT 1GM/INCH UDPKT TD ONE (15:45)
[2021-08-09 16:13] LABS: CHLORIDE 108 mEq/L (98-107)
[2021-08-09 16:17] LABS: PARTIAL THROMBOPLASTIN TIME 24.1 sec (23.4-31.0); PROTHROMBIN TIME 10.9 sec (9.6-11.0)
[2021-08-09 16:18] LABS: BASOPHILS % 1.1 % (0.0-2.0); EOSINOPHILS % 9.2 % (0.0-5.0); HEMATOCRIT. 36.9 % (42.0-52.0); HEMOGLOBIN. 12.5 g/dL (14.0-18.0); LYMPHOCYTES % 21.1 % (20.0-50.0); MEAN CORPUSCULAR HEMOGLOBIN 27.3 pg (28.0-32.0); MEAN CORPUSCULAR VOLUME 80.6 fL (80.0-94.0); MEAN PLATELET VOLUME 8.4 fl (7.4-10.4); MONOCYTES % 6.1 % (2.0-8.0); NEUTROPHILS % 62.5 % (40.0-76.0); PLATELET 198 x1000/uL (130-400); RED BLOOD CELL COUNT 4.58 mill/uL (4.7-6.1); RED CELL DISTRIBUTION WIDTH 14.1 % (11.6-14.6)
[2021-08-09 16:26] LABS: BG BASE EXCESS 3.1 mmol/L (-2.0-2.0); BG CARBOXYHEMOGLOBIN 0.1 % (0.5-1.5); BG DEOXYHEMOGLOBIN 2.1 % (0.0-5.0); BG FRACTION INSPIRED OXYGEN 50; BG HCO3 ACT 28.5 mmol/L (22.0-26.0); BG METHEMOGLOBIN 0.3 % (0.0-1.5); BG OXYGEN SATURATION 97.9 % (92.0-98.5); BG OXYHEMOGLOBIN 97.5 % (94.0-97.0); BG PH 7.401 (7.350-7.450); BG PO2 119.5 mmHg (75.0-100.0); BG SAMPLE SITE LEFT RADIAL; BG TOTAL HEMOGLOBIN 12.9 g/dL (12.0-18.0); BG VENT MODE MASK - BIPAP
[2021-08-09] MEDS ORDERED: METHYLPREDNISOLONE SOD SUCC 125 MG/2 ML VIAL IV STA (17:35)
[2021-08-09] MEDS ORDERED: IPRATROPIUM BROMIDE (0.02%) 0.5MG/2.5ML NEB HHN STA (17:35)
[2021-08-09] MEDS ORDERED: ALBUTEROL (0.083%) 2.5MG/3ML NEB HHN STA (17:35)
[2021-08-09 20:00] VITALS: BP 131/86
[2021-08-09 20:40] VITALS: BP 131/86
[2021-08-09 22:00] VITALS: BP 184/90
[2021-08-09] MEDS ORDERED: METOPROLOL TARTRATE 5MG/5ML VIAL IV PRN (23:15)
[2021-08-09] MEDS: HYDROCODONE/ACETAMINOPHEN 10/325MG TABLET PO PRN (23:24)
[2021-08-09] MEDS ORDERED: NALOXONE HCL 0.4MG/ML VIAL IV PRN (23:30)
[2021-08-09] MEDS: METHYLPREDNISOLONE SOD SUCC 125 MG/2 ML VIAL IV SCH (23:35)
[2021-08-10] VITALS (12 sets, daily range): BP systolic 113–190; BP diastolic 65–98
[2021-08-10] MEDS ORDERED: IPRATROPIUM/ALBUTEROL 0.5-3(2.5)MG/3ML NEB HHN SCH
[2021-08-10] MEDS: METHYLPREDNISOLONE SOD SUCC 125 MG/2 ML VIAL IV SCH ×3 (06:00→17:51)
[2021-08-10 06:46] LABS: BASOPHILS % 0.4 % (0.0-2.0); EOSINOPHILS % 0.2 % (0.0-5.0); HEMATOCRIT. 41.2 % (42.0-52.0); HEMOGLOBIN. 14.1 g/dL (14.0-18.0); LYMPHOCYTES % 12.3 % (20.0-50.0); MEAN CORPUSCULAR HEMOGLOBIN 27.6 pg (28.0-32.0); MEAN CORPUSCULAR VOLUME 80.6 fL (80.0-94.0); MEAN PLATELET VOLUME 8.4 fl (7.4-10.4); MONOCYTES % 0.9 % (2.0-8.0); NEUTROPHILS % 86.2 % (40.0-76.0); PLATELET 217 x1000/uL (130-400); RED BLOOD CELL COUNT 5.11 mill/uL (4.7-6.1); RED CELL DISTRIBUTION WIDTH 13.8 % (11.6-14.6)
[2021-08-10 07:02] LABS: CHLORIDE 103 mEq/L (98-107)
[2021-08-10 07:12] LABS: LDL CHOLESTEROL 94 mg/dL (5-100)
[2021-08-10 07:13] LABS: CREATINE KINASE 120 IU/L (39-308); HDL CHOLESTEROL 61 mg/dL (40-59)
[2021-08-10 07:17] LABS: CREATINE KINASE MB FRACTION 2.8 ng/mL (0.5-3.6)
[2021-08-10] MEDS: FUROSEMIDE 40MG/4ML VIAL IV SCH (08:00)
[2021-08-10] MEDS: HYDROCODONE/ACETAMINOPHEN 10/325MG TABLET PO PRN (08:18)
[2021-08-10 09:52] LABS: *AMPHETAMINES SCREEN URINE NEGATIVE (NEGATIVE); *BARBITURATES SCREEN URINE NEGATIVE (NEGATIVE); *BENZODIAZEPINES SCREEN URINE NEGATIVE (NEGATIVE); *COCAINE SCREEN URINE NEGATIVE (NEGATIVE); CANNABINOID URINE SCREEN NEGATIVE (NEGATIVE); METHADONE URINE SCREEN NEGATIVE (NEGATIVE); OPIATES URINE SCREEN PRESUMTIVE POSITIVE (NEGATIVE); PHENCYCLIDINE URINE SCREEN NEGATIVE (NEGATIVE)
[2021-08-10] MEDS: AMLODIPINE 10MG TABLET PO SCH (10:28)
[2021-08-10] MEDS: METOPROLOL TARTRATE 50MG TABLET PO SCH ×2 (10:28→20:25)
[2021-08-10 11:03] LABS: T4 FREE 0.88 ng/dL (0.76-1.46)
[2021-08-10] MEDS: ENOXAPARIN 40MG/0.4ML SYR SUBCUT SCH (11:52)
[2021-08-10] MEDS: PANTOPRAZOLE SODIUM 40 MG/VIAL IV SCH (12:45)
[2021-08-10] MEDS ORDERED: MORPHINE SULFATE 2 MG/ML CPJ (NOT FOR IM USE) IV NR (12:45)
[2021-08-10] MEDS ORDERED: VISCOUS LIDOCAINE 2% 15 ML UDC MM PRN (13:00)
[2021-08-10] MEDS ORDERED: SODIUM POLYSTYRENE SULFONATE 15 G/60 ML BOT PO NR (14:30)
[2021-08-10 17:41] LABS: CREATINE KINASE 139 IU/L (39-308)
[2021-08-10 17:42] LABS: CREATINE KINASE MB FRACTION 3.1 ng/mL (0.5-3.6)
[2021-08-10] MEDS: IPRATROPIUM/ALBUTEROL 0.5-3(2.5)MG/3ML NEB HHN SCH (20:06)
[2021-08-10] MEDS: ONDANSETRON HCL 4MG/2ML INJ IV PRN (21:08)
[2021-08-10] MEDS: MORPHINE SULFATE 2 MG/ML CPJ (NOT FOR IM USE) IV PRN (21:10)
[2021-08-10] MEDS: GUAIFENESIN 200MG TABLET PO PRN (21:10)
[2021-08-11] VITALS (12 sets, daily range): BP systolic 106–147; BP diastolic 55–85
[2021-08-11] MEDS: METHYLPREDNISOLONE SOD SUCC 125 MG/2 ML VIAL IV SCH ×5 (00:24→23:00)
[2021-08-11] MEDS: IPRATROPIUM/ALBUTEROL 0.5-3(2.5)MG/3ML NEB HHN SCH ×6 (00:29→21:13)
[2021-08-11] MEDS: MORPHINE SULFATE 2 MG/ML CPJ (NOT FOR IM USE) IV PRN (05:20)
[2021-08-11] MEDS: ENOXAPARIN 40MG/0.4ML SYR SUBCUT SCH (09:23)
[2021-08-11] MEDS: FUROSEMIDE 40MG/4ML VIAL IV SCH (09:23)
[2021-08-11] MEDS: PANTOPRAZOLE SODIUM 40 MG/VIAL IV SCH (09:23)
[2021-08-11] MEDS: AMLODIPINE 10MG TABLET PO SCH (09:24)
[2021-08-11] MEDS: METOPROLOL TARTRATE 50MG TABLET PO SCH ×2 (09:25→20:31)
[2021-08-11 13:23] LABS: BASOPHILS % 0.1 % (0.0-2.0); HEMATOCRIT. 36.4 % (42.0-52.0); HEMOGLOBIN. 12.8 g/dL (14.0-18.0); LYMPHOCYTES % 7.5 % (20.0-50.0); MEAN CORPUSCULAR HEMOGLOBIN 28.2 pg (28.0-32.0); MEAN CORPUSCULAR VOLUME 80.3 fL (80.0-94.0); MEAN PLATELET VOLUME 8.5 fl (7.4-10.4); MONOCYTES % 3.5 % (2.0-8.0); NEUTROPHILS % 88.9 % (40.0-76.0); PLATELET 224 x1000/uL (130-400); RED BLOOD CELL COUNT 4.53 mill/uL (4.7-6.1)
[2021-08-11 13:41] LABS: CHLORIDE 99 mEq/L (98-107)
[2021-08-11] MEDS: BENZONATATE 100MG CAPSULE PO SCH ×2 (15:22→22:14)
[2021-08-12] VITALS (12 sets, daily range): BP systolic 108–145; BP diastolic 51–73
[2021-08-12] MEDS: ONDANSETRON HCL 4MG/2ML INJ IV PRN (00:05)
[2021-08-12] MEDS: MORPHINE SULFATE 2 MG/ML CPJ (NOT FOR IM USE) IV PRN (00:05)
[2021-08-12] MEDS: IPRATROPIUM/ALBUTEROL 0.5-3(2.5)MG/3ML NEB HHN SCH ×6 (00:09→20:28)
[2021-08-12] MEDS: METHYLPREDNISOLONE SOD SUCC 125 MG/2 ML VIAL IV SCH (05:04)
[2021-08-12] MEDS: BENZONATATE 100MG CAPSULE PO SCH ×3 (07:25→21:50)
[2021-08-12] MEDS: FUROSEMIDE 40MG/4ML VIAL IV SCH (09:20)
[2021-08-12] MEDS: AMLODIPINE 10MG TABLET PO SCH (09:21)
[2021-08-12] MEDS: METOPROLOL TARTRATE 50MG TABLET PO SCH ×2 (09:22→21:32)
[2021-08-12] MEDS: PANTOPRAZOLE SODIUM 40 MG/VIAL IV SCH (09:22)
[2021-08-12] MEDS: ENOXAPARIN 40MG/0.4ML SYR SUBCUT SCH (09:22)
[2021-08-12 09:23] LABS: HEMOGLOBIN. 11.9 g/dL (14.0-18.0); MEAN CORPUSCULAR HEMOGLOBIN 28.2 pg (28.0-32.0); MEAN CORPUSCULAR VOLUME 80.4 fL (80.0-94.0); MEAN PLATELET VOLUME 8.8 fl (7.4-10.4); PLATELET 192 x1000/uL (130-400); RED BLOOD CELL COUNT 4.23 mill/uL (4.7-6.1); RED CELL DISTRIBUTION WIDTH 13.4 % (11.6-14.6)
[2021-08-12 09:30] LABS: CHLORIDE 100 mEq/L (98-107)
[2021-08-12] MEDS ORDERED: METHYLPREDNISOLONE SOD SUCC 40 MG/ML VIAL IV SCH (13:00)
[2021-08-12] MEDS ORDERED: INSULIN GLARGINE UD 100 UNITS/ML SYR SUBCUT SCH (13:00)
[2021-08-12] MEDS ORDERED: DEXTROSE 50% WATER 50ML SYRINGE IV PRN (13:15)
[2021-08-12] MEDS: BLOOD SUGAR DIAGNOSTIC STRIP TEST SCH ×3 (13:42→21:00)
[2021-08-12] MEDS: INSULIN LISPRO 100 UNITS/ML SUBCUT SCH ×3 (13:42→21:51)
[2021-08-12] MEDS ORDERED: INSULIN GLARGINE UD 100 UNITS/ML SYR SUBCUT NR ×2 (14:30→15:00)
[2021-08-12 15:21] LABS: PLATELET ESTIMATE NORMAL
[2021-08-12] MEDS: PREDNISONE 20MG TABLET PO SCH (17:50)
[2021-08-12] MEDS: HYDROCODONE/ACETAMINOPHEN 10/325MG TABLET PO PRN (21:31)
[2021-08-13] VITALS (10 sets, daily range): BP systolic 117–153; BP diastolic 59–89
[2021-08-13] MEDS: IPRATROPIUM/ALBUTEROL 0.5-3(2.5)MG/3ML NEB HHN SCH ×6 (00:23→20:22)
[2021-08-13] MEDS: BENZONATATE 100MG CAPSULE PO SCH ×3 (05:46→22:39)
[2021-08-13] MEDS: BLOOD SUGAR DIAGNOSTIC STRIP TEST SCH ×4 (07:36→20:58)
[2021-08-13] MEDS: INSULIN LISPRO 100 UNITS/ML SUBCUT SCH ×4 (08:23→21:14)
[2021-08-13] MEDS: PREDNISONE 20MG TABLET PO SCH ×2 (08:55→17:39)
[2021-08-13] MEDS: METOPROLOL TARTRATE 50MG TABLET PO SCH ×2 (08:56→20:58)
[2021-08-13] MEDS: FAMOTIDINE 20MG/2ML VIAL IV SCH ×2 (08:56→20:58)
[2021-08-13] MEDS: FUROSEMIDE 40MG/4ML VIAL IV SCH (08:56)
[2021-08-13] MEDS: ENOXAPARIN 40MG/0.4ML SYR SUBCUT SCH (08:56)
[2021-08-13] MEDS: AMLODIPINE 10MG TABLET PO SCH (08:57)
[2021-08-13] MEDS: INSULIN GLARGINE UD 100 UNITS/ML SYR SUBCUT SCH (09:59)
[2021-08-13] MEDS: GUAIFENESIN 200MG TABLET PO PRN ×2 (11:51→20:58)
[2021-08-14] VITALS (11 sets, daily range): BP systolic 114–146; BP diastolic 58–85
[2021-08-14] MEDS: IPRATROPIUM/ALBUTEROL 0.5-3(2.5)MG/3ML NEB HHN SCH ×6 (00:16→20:51)
[2021-08-14] MEDS: BENZONATATE 100MG CAPSULE PO SCH ×3 (05:56→21:58)
[2021-08-14] MEDS: BLOOD SUGAR DIAGNOSTIC STRIP TEST SCH ×4 (07:30→21:58)
[2021-08-14] MEDS: ENOXAPARIN 40MG/0.4ML SYR SUBCUT SCH (09:34)
[2021-08-14] MEDS: PREDNISONE 20MG TABLET PO SCH ×2 (09:38→17:10)
[2021-08-14] MEDS: AMLODIPINE 10MG TABLET PO SCH (09:39)
[2021-08-14] MEDS: METOPROLOL TARTRATE 50MG TABLET PO SCH ×3 (09:40→21:59)
[2021-08-14] MEDS: FAMOTIDINE 20MG/2ML VIAL IV SCH ×2 (09:40→21:58)
[2021-08-14] MEDS: FUROSEMIDE 40MG/4ML VIAL IV SCH (09:40)
[2021-08-14] MEDS: INSULIN LISPRO 100 UNITS/ML SUBCUT SCH ×4 (10:30→21:58)
[2021-08-14] MEDS: INSULIN GLARGINE UD 100 UNITS/ML SYR SUBCUT SCH (11:50)
[2021-08-15] VITALS: BP 123/70
[2021-08-15] MEDS: IPRATROPIUM/ALBUTEROL 0.5-3(2.5)MG/3ML NEB HHN SCH ×4 (01:22→11:28)
[2021-08-15 04:00] VITALS: BP 123/63
[2021-08-15] MEDS: BENZONATATE 100MG CAPSULE PO SCH (06:42)
[2021-08-15] MEDS: BLOOD SUGAR DIAGNOSTIC STRIP TEST SCH (07:30)
[2021-08-15 08:00] VITALS: BP 125/69
[2021-08-15] MEDS: PREDNISONE 20MG TABLET PO SCH (08:10)
[2021-08-15] MEDS: METOPROLOL TARTRATE 50MG TABLET PO SCH (08:11)
[2021-08-15] MEDS: AMLODIPINE 10MG TABLET PO SCH (08:11)
[2021-08-15] MEDS: FAMOTIDINE 20MG/2ML VIAL IV SCH (08:12)
[2021-08-15] MEDS: ENOXAPARIN 40MG/0.4ML SYR SUBCUT SCH (08:12)
[2021-08-15] MEDS: FUROSEMIDE 40MG/4ML VIAL IV SCH (08:12)
[2021-08-15] MEDS: INSULIN LISPRO 100 UNITS/ML SUBCUT SCH (08:31)
[2021-08-15 11:35] VITALS: BP 110/73
[2021-08-15] MEDS: INSULIN GLARGINE UD 100 UNITS/ML SYR SUBCUT SCH (12:12)
== END 2021-08-15 17:12 | disposition home or self-care (01) | DRG 194 ==
LOC: ER 15:34 → EDBEDREQ 17:46 → EDBEDREQSVC 17:46 → EDBEDREQTM 17:46 → ENRESERV 20:09 → 5EST 20:49
PROVIDERS: ADMIT Family Medicine; ATTEND Family Medicine
PROC: 5A09457 Assistance with Respiratory Ventilation, 24-96 Consecutive Hours, Continuous Positive Airway Pressure (ICD-10-PCS; principal; 2021-08-09)
PROC: 5A09357 Assistance with Respiratory Ventilation, Less than 24 Consecutive Hours, Continuous Positive Airway Pressure (ICD-10-PCS; 2021-08-12)
DX: I11.0 Hypertensive heart disease with heart failure (principal); J96.01 Acute respiratory failure with hypoxia; J44.1 Chronic obstructive pulmonary disease with (acute) exacerbation; I50.43 Acute on chronic combined systolic (congestive) and diastolic (congestive) heart failure; E11.65 Type 2 diabetes mellitus with hyperglycemia; R00.0 Tachycardia, unspecified; Z20.822 Contact with and (suspected) exposure to COVID-19; E87.5 Hyperkalemia; Z79.899 Other long term (current) drug therapy; Z79.84 Long term (current) use of oral hypoglycemic drugs; Z85.9 Personal history of malignant neoplasm, unspecified; Z87.891 Personal history of nicotine dependence
CPT/HCPCS: 36415; 36600; 71045; 80048; 80053; 80061; 80305; 82375; 82550; 82553; 82805; 82962; 83036; 83880; 84439; 84443; 84484; 85025; 85379; 87426; 93005; 93306; 94640; 94660; 97162; 97165; 97535; 99291; C9113; J1650; J1815; J1940; J2270; J2405; J2920; J2930; J3490; J7512

== ENCOUNTER 2021-09-05 11:10 | Inpatient (IN) | payer MEDICAID ==
[~2021-09-05] VITALS: Ht 170.2 cm; Wt 73.5 kg
[2021-09-05] MEDS ORDERED: METHYLPREDNISOLONE SOD SUCC 125 MG/2 ML VIAL IV STA (11:18)
[2021-09-05] MEDS ORDERED: IPRATROPIUM BROMIDE (0.02%) 0.5MG/2.5ML NEB HHN STA (11:18)
[2021-09-05 11:30] LABS: BASOPHILS % 1.2 % (0.0-2.0); EOSINOPHILS % 14.4 % (0.0-5.0); HEMATOCRIT. 36.6 % (42.0-52.0); HEMOGLOBIN. 12.2 g/dL (14.0-18.0); MEAN CORPUSCULAR HEMOGLOBIN 26.9 pg (28.0-32.0); MEAN PLATELET VOLUME 7.4 fl (7.4-10.4); MONOCYTES % 7.7 % (2.0-8.0); NEUTROPHILS % 45.7 % (40.0-76.0); PLATELET 195 x1000/uL (130-400); RED BLOOD CELL COUNT 4.52 mill/uL (4.7-6.1); RED CELL DISTRIBUTION WIDTH 14.6 % (11.6-14.6)
[2021-09-05] MEDS ORDERED: MAGNESIUM 2 G PREMIX 50 ML IV ONE (11:30)
[2021-09-05 11:37] LABS: CHLORIDE 108 mEq/L (98-107)
[2021-09-05] MEDS: ALBUTEROL (0.083%) 2.5MG/3ML NEB HHN SCH (12:22)
[2021-09-05 17:40] VITALS: BP 146/56
[2021-09-05 18:00] VITALS: BP 140/77
[2021-09-05] MEDS ORDERED: ONDANSETRON HCL 4MG/2ML INJ IV PRN (18:15)
[2021-09-05] MEDS ORDERED: ACETAMINOPHEN 325MG TABLET PO PRN (18:15)
[2021-09-05] MEDS: METHYLPREDNISOLONE SOD SUCC 40 MG/ML VIAL IV SCH (18:38)
[2021-09-05 20:00] VITALS: BP 138/76
[2021-09-05] MEDS ORDERED: ENOXAPARIN 40MG/0.4ML SYR SUBCUT SCH (20:00)
[2021-09-05] MEDS: IPRATROPIUM/ALBUTEROL 0.5-3(2.5)MG/3ML NEB HHN SCH (21:11)
[2021-09-05 22:00] VITALS: BP 139/77
[2021-09-06] VITALS (10 sets, daily range): BP systolic 130–156; BP diastolic 63–82
[2021-09-06] MEDS: IPRATROPIUM/ALBUTEROL 0.5-3(2.5)MG/3ML NEB HHN SCH ×4 (00:38→12:56)
[2021-09-06] MEDS: METHYLPREDNISOLONE SOD SUCC 40 MG/ML VIAL IV SCH ×2 (01:38→10:08)
[2021-09-06] MEDS ORDERED: BENZONATATE 100MG CAPSULE PO PRN (10:15)
[2021-09-06] MEDS ORDERED: BENZ-16 MT (10:37)
[2021-09-06] MEDS ORDERED: P20 PO (10:37)
== END 2021-09-06 15:00 | disposition home or self-care (01) | DRG 140 ==
LOC: ER 11:10 → MICUSO 14:07 → 5EST 18:03
PROVIDERS: ADMIT Internal Medicine; ATTEND Internal Medicine
PROC: 5A09357 Assistance with Respiratory Ventilation, Less than 24 Consecutive Hours, Continuous Positive Airway Pressure (ICD-10-PCS; principal; 2021-09-05)
DX: J44.1 Chronic obstructive pulmonary disease with (acute) exacerbation (principal); J96.21 Acute and chronic respiratory failure with hypoxia; E87.8 Other disorders of electrolyte and fluid balance, not elsewhere classified; D64.9 Anemia, unspecified; D72.819 Decreased white blood cell count, unspecified; E11.9 Type 2 diabetes mellitus without complications; I50.9 Heart failure, unspecified; I11.0 Hypertensive heart disease with heart failure; Z20.822 Contact with and (suspected) exposure to COVID-19
CPT/HCPCS: 36415; 71045; 80053; 83605; 83880; 84484; 85025; 87426; 93005; 94640; 94660; 99291; J1650; J2920; J2930; J3475